=== PATIENT | female | born 1990 | race Caucasian/White ===

== ENCOUNTER 2018-08-26 11:18 | Emergency (ER) | payer BC, OTHER ==
[~2018-08-26] VITALS: Ht 170.2 cm; Wt 80.0 kg
[2018-08-26 11:22] VITALS: BP 173/108
[2018-08-26] MEDS ORDERED: IBUPROFEN 800MG TABLET PO ONE (13:30)
[2018-08-26] MEDS ORDERED: ACETAMINOPHEN 325MG TABLET PO ONE (15:15)
== END 2018-08-26 17:05 | disposition home or self-care (01) ==
LOC: ER 11:42
DX: S20.219A Contusion of unspecified front wall of thorax, initial encounter (principal); R00.0 Tachycardia, unspecified; V43.62XA Car passenger injured in collision with other type car in traffic accident, initial encounter; Y93.89 Activity, other specified; Y92.488 Other paved roadways as the place of occurrence of the external cause
CPT/HCPCS: 71045; 81025; 93005; 99283